=== PATIENT | male | born 1950 | race African-American/Black ===

== ENCOUNTER 2018-11-26 05:12 | Day surgery (SDC) | payer MEDICARE, OTHER ==
[2018-11-26] VITALS (11 sets, daily range): BP systolic 116–149; BP diastolic 68–91
[~2018-11-26] VITALS: Ht 167.6 cm; Wt 69.9 kg
[2018-11-26] MEDS ORDERED: ASPIR 8181 MG ORAL (05:53)
[2018-11-26] MEDS ORDERED: TRIAMTERENE-HC1 EAC7 ORAL (05:53)
[2018-11-26] MEDS ORDERED: METOPROLOL SUCC50 MG ORAL (05:53)
--- NOTE | 2018-11-26 06:15 | NUR ---
[id number] LYLES RN, K+ LEVEL 3.3.
[2018-11-26] MEDS ORDERED: Iothalamate Meglumine 60% 30ML INJ ONE ×3 (06:28→07:36)
[2018-11-26] MEDS ORDERED: LR 1000ml 1,000 ML IVLG SCH (06:28)
[2018-11-26] MEDS ORDERED: Metoclopramide 10mg/2ml Inj IVP PRN (06:30)
[2018-11-26] MEDS ORDERED: HYDROcodone/Acetamin 7.5/325 tab ORAL PRN (06:30)
[2018-11-26] MEDS ORDERED: Meperidine 50mg/ml Inj(FOR RIGORS ONLY) IVP PRN (06:30)
[2018-11-26] MEDS ORDERED: LORazepam Inj 2mg/ml 1ml IV PRN (06:30)
[2018-11-26] MEDS ORDERED: DiphenhydrAMINE 50mg/ml Inj IVP PRN (06:30)
[2018-11-26] MEDS ORDERED: fentaNYL 100 mcg/2 mL IV PRN (06:30)
[2018-11-26] MEDS ORDERED: Atropine Sulfate 0.4mg/ml inj IVP PRN (06:30)
[2018-11-26] MEDS ORDERED: oxyCODONE HCL/Acetaminophen 5/325mg ORAL PRN (06:30)
[2018-11-26] MEDS ORDERED: Labetalol 5mg/ml 20ml vial IV PRN (06:30)
[2018-11-26] MEDS ORDERED: HYDROcodone/Acetamin 5/325 tab ORAL PRN (06:30)
[2018-11-26] MEDS ORDERED: Midazolam 2mg/2ml Inj IVP PRN (06:30)
[2018-11-26] MEDS ORDERED: Ketorolac 30mg Inj IV PRN ×2 (06:30)
[2018-11-26] MEDS ORDERED: Hydromorphone 0.5mg/0.5ml inj IVP PRN (06:30)
[2018-11-26] MEDS ORDERED: Sodium Chloride 10ml vial INJ ONE (06:34)
[2018-11-26] MEDS ORDERED: Dexamethasone 4mg/ml vial ONE (06:34)
[2018-11-26] MEDS ORDERED: Lidocaine 1% MPF 10mg/ml 5ml ONE (06:34)
--- NOTE | 2018-11-26 06:38 | Anethesia Preoperative Eval ---
Anesthesia Pre-op PMH/ROS General Date of Evaluation: Nov 26, 2018 Time of Evaluation: 07:16 Anesthesiologist: Delmar ASA Score: ASA 3 Mallampati Score Class I : Soft palate, uvula, fauces, pillars visible Class II: Soft palate, uvula, fauces visible Class III: Soft palate, base of uvula visible Class IV: Only hard plate visible Mallampati Classification: Class II Surgeon: Chris Diagnosis: R RenalCalculus Surgical Procedure: Cystoscopy, Lithotripsy Anesthesia History: none Family History: no anesthesia problems Allergies: Coded Allergies: No Known Allergies (Unverified , 11/25/18) Medications: see eMAR Patient NPO?: Yes Past Medical History Cardiovascular: Reports: HTN Gastrointestinal/Genitourinary: Reports: other - Colorectal CA Hematology/Immune: 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 Exam Physician Exam Last Vital Signs Date Time Temp Pulse Resp B/P (MAP) Pulse Ox O2 Delivery O2 Flow Rate FiO2 11/26/18 05:48 Room Air 11/26/18 05:40 97.2 59 20 122/78 59 Constitutional: NAD Neurologic: CN 2-12 intact Cardiovascular: RRR Respiratory: CTA Gastrointestinal: S/NT/ND Airway Exam Mallampati Score: Class II MO: full ROM: limited Teeth: missing, intact Anesthesia Pre-op A/P Risk Assessment & Plan Assessment: ASA 3 Plan: GA, SED Status Change Before Surgery: No Pre-Antibiotics Dru Gram Cefoxitin IV Given Within 1 Hr of Incision: Yes Time Given: 07:31 Omid Jacobsen MD Nov 26, 2018 06:38
[2018-11-26] MEDS ORDERED: cefOXitin 1gm Inj ONE (06:40)
[2018-11-26] MEDS ORDERED: Midazolam 2mg/2ml Inj ONE (06:52)
[2018-11-26] MEDS ORDERED: Alfentanil 2ml Inj ONE (06:52)
[2018-11-26] MEDS ORDERED: Sterile Water For Irrig 2000ml IRRIG ONE (07:00)
[2018-11-26] MEDS ORDERED: Cefepime HCl 1 GM in D5W 55 ML IVPB ONE (07:00)
[2018-11-26] MEDS ORDERED: NS Irrig 1000ml ONE (07:00)
[2018-11-26] MEDS ORDERED: LR 1000ml ONE (07:00)
[2018-11-26] MEDS ORDERED: Propofol 200mg/20ml IV ONE (07:00)
--- NOTE | 2018-11-26 07:07 | Pre-Procedure Note/Attestation ---
Pre-Procedure Note/Attestation Complete Prior to Procedure Planned Procedure: right Procedure Narrative: cysto, exchange of right ureteral stent, ureteroscopy, laser and shockwave litho Indications for Procedure Pre-Operative Diagnosis: right renal calc Attestation I attest that I discussed the nature of the procedure; its benefits; risks and complications; and alternatives (and the risks and benefits of such alternatives ), prior to the procedure, with the patient (or the patient's legal passenger relations representative). I attest that, if there was a reasonable possibility of needing a blood transfusion, the patient (or the patient's legal passenger relations representative) was given the [facility] standardized written summary, pursuant to the [place] Blood Safety Act ([place] Health and Safety Code # 1645, as amended). I attest that I re-evaluated the patient just prior to the surgery and that there has been no change in the patient's H&P, except as documented below: Jaswinder Perez MD Nov 26, 2018 07:07
--- NOTE | 2018-11-26 07:08 | Urology Progress Note ---
Assessment/Plan Assessment/Plan: right renal calc BPH hx LUTS hematuria plan surg today d/w pt fully risks, etc Subjective Allergies: Coded Allergies: No Known Allergies (Unverified , 11/25/18) Subjective all noted, for surg today Objective Last 24 Hour Vital Signs Date Time Temp Pulse Resp B/P (MAP) Pulse Ox O2 Delivery O2 Flow Rate FiO2 11/26/18 05:48 Room Air 11/26/18 05:40 97.2 59 20 122/78 59 Room Air Height (Feet): 5 Height (Inches): 6.00 Weight (Pounds): 154 Objective exam stable all preop labs noted and reviewed Jaswinder Perez MD Nov 26, 2018 07:08
[2018-11-26] MEDS ORDERED: NS Irrig 4000ml IRRIG ONE (07:36)
--- NOTE | 2018-11-26 08:25 | Brief Operative Note ---
Immediate Post Operative Note Operative Note Pre-op Diagnosis: right renal calc Procedure: cysto, exchange of right ureteral stent, lithopaxy of encrustations on stent, ureteroscopy, ESWL Post-op Diagnosis: same as pre-op plus - encrustations on stent Findings: consistent w/pre-op dx studies, other - encrustations on stent Surgeon: juan carlos Anesthesiologist: joesph Anesthesia: general Specimen: yes Complications: none Condition: stable Fluids: NS Estimated Blood Loss: minimal Implant(s) used?: Yes - 6f x 26 cm right ureteral JJ stent Jaswinder Perez MD Nov 26, 2018 08:25
--- NOTE | 2018-11-26 08:46 | Immediate Post-Op Evaluation ---
Immediate Post-Op Evalulation Immediate Post-Op Evalulation Procedure: Cystoscopy, Lithotripsy Date of Evaluation: Nov 26, 2018 Time of Evaluation: 09:00 IV Fluids: 500 LR Blood Products: 0 Estimated Blood Loss: 10 Urinary Output: 0 Blood Pressure Systolic: 118 Blood Pressure Diastolic: 68 Pulse Rate: 59 Respiratory Rate: 16 O2 Sat by Pulse Oximetry: 100 Temperature (Fahrenheit): 98.2 Pain Score (1-10): 2 Nausea: No Vomiting: No Complications 0 Patient Status: awake, reacts, patent, none Hydration Status: adequate Dru gram Cefoxitin Given Within 1 Hr of Incision: Yes Time Given: 07:31 Omid Jacobsen MD Nov 26, 2018 08:46
--- NOTE | 2018-11-26 08:49 | 48 Hour Post Anesthesia Eval ---
Post Anesthesia Evaluation Procedure: Cystoscopy, Lithotripsy Date of Evaluation: Nov 26, 2018 Time of Evaluation: 11:12 Blood Pressure Systolic: 121 0: 78 Pulse Rate: 67 Respiratory Rate: 18 Temperature (Fahrenheit): 98.4 O2 Sat by Pulse Oximetry: 96 Airway: patent Nausea: No Vomiting: No Pain Intensity: 0 Hydration Status: adequate Cardiopulmonary Status: Stable Mental Status/LOC: patient returned to baseline Follow-up Care/Observations: 0 Post-Anesthesia Complications: 0 Follow-up care needed: ready to discharge Omid Jacobsen MD Nov 26, 2018 08:49
--- NOTE | 2018-11-26 18:00 | Operative Note - Dictated ---
DATE OF OPERATION: 11/26/2018 PREOPERATIVE DIAGNOSIS: Right renal calculus. POSTOPERATIVE DIAGNOSES: 1. Right renal calculus. 2. Bladder calculi encrustations on stent. PROCEDURE PERFORMED: Cystoscopy with removal and exchange of right ureteral stent, removal of encrustations on stent, right ureteroscopy and right shockwave lithotripsy. OPERATING SURGEON: Jaswinder Perez M.D. ANESTHESIA: Omid Jacobsen M.D. ANESTHESIA: General. INDICATION FOR PROCEDURE: This is a pleasant 68-year-old male. He has a history of obstructive right proximal ureteral calculus. He was evaluated in outside hospital about 2-1/2 months ago at which time the stone was pushed back into the kidney and a stent was placed. He is subsequently now coming in for treatment of the stone. The nature of the procedure including possible risks and complications of bleeding, infection, anesthesia, damage to the urethra, bladder and need for further surgery, etc. were discussed. No guarantees were given and implied. 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 His prostate was irregular, likely previous TURP. There was some encrustations on the indwelling stent. These were removed. Old stent was removed, a new stent was placed. Stone was treated with shockwave lithotripsy. PROCEDURE IN DETAIL: Informed consent was obtained for the patient. The patient was brought to the operative room and then placed in supine position. After successful general anesthesia was induced, the patient was then placed in a modified dorsal lithotomy position and the genitalia was then prepped and draped in usual sterile fashion. Preoperative IV antibiotics were administered. Time-out was performed. Cystoscopy was then performed. He did have multiple urethral bands and there was basically general narrowing of the urethra, which made passage of a 21-[place] cystoscope sheath slightly tight. The prostate was irregular presumably from TURP, . The bladder was inspected. Old stent was noted. There was encrustations on the stent. These were taken down. I was able to pull the stent partially up to the meatus. The wire was then passed up to the stent. Old stent was removed intact. On crown ceramist fluoroscopy, the stone was easily visible. It appeared to be in the lower pole of the right kidney. This wire was left as a safety wire. Rigid ureteroscopy was then performed. I was able to get into the ureter without difficulty. There was some bullous changes on the orifice. There were no stone fragments along the length of the ureter. The safety wire was removed with a cystoscope. A new 6-[place] x 26 cm double-J stent was then passed up into the collecting system with fluoroscopic and visual guidance. It appeared to be in good position with a good curl in the kidney as well as the bladder. A small string was left at the bladder end. At this point, a Kellogg catheter was placed. The patient was then placed in a supine position and then using the Dornier Sigma machine, the stone was focused over the focal point of the shockwave generator and a total of 2500 shock waves were delivered. The stone was visualized intermittently and it appeared to fragment well with the procedure, with very minimal small residual fragments. The patient was then awakened and was taken to recovery room in stable condition. Blood loss is minimal. No complications. Jaswinder Perez M.D. DR: JUANITO JOB#: [id number] CC: Luis Reed M.D.
== END 2018-11-26 11:05 | disposition home or self-care (01) ==
LOC: SUR 05:12
DX: N20.0 Calculus of kidney (principal); I10 Essential (primary) hypertension; I11.9 Hypertensive heart disease without heart failure; Z85.038 Personal history of other malignant neoplasm of large intestine; Z86.718 Personal history of other venous thrombosis and embolism
CPT/HCPCS: 52356; J0694; J1100; J2250; J2405; J2704; J3490; Q9961; 94003; 94150